=== PATIENT | female | born 1970 | race African-American/Black ===

== ENCOUNTER 2021-03-16 04:50 | Inpatient (IN) | payer MEDICAID, OTHER ==
[~2021-03-16] VITALS: Ht 170.2 cm; Wt 116.3 kg
[2021-03-16] MEDS ORDERED: ONDANSETRON HCL 4MG/2ML INJ IV STA (05:16)
[2021-03-16] MEDS ORDERED: SODIUM CHLORIDE 0.9% 1,000 ML IV ONE (05:30)
[2021-03-16] MEDS ORDERED: MECLIZINE 25MG TABLET PO ONE (06:30)
[2021-03-16] MEDS ORDERED: ASPIRIN 325MG EC TABLET PO ONE (06:30)
[2021-03-16] MEDS ORDERED: CLOPIDOGREL 75MG TABLET PO ONE (06:30)
[2021-03-16] MEDS ORDERED: ONDANSETRON HCL 4MG/2ML INJ IV ONE (06:30)
[2021-03-16 06:48] LABS: CHLORIDE 103 mEq/L (98-107)
[2021-03-16 06:53] LABS: ETHANOL BLOOD < 10 mg/dL
[2021-03-16 07:02] LABS: BASOPHILS % 0.2 % (0.0-2.0); EOSINOPHILS % 0.8 % (0.0-5.0); HEMATOCRIT. 39.4 % (36.0-48.0); HEMOGLOBIN. 12.4 g/dL (12.0-16.0); LYMPHOCYTES % 38.5 % (20.0-50.0); MEAN CORPUSCULAR HEMOGLOBIN 24.3 pg (28.0-32.0); MEAN CORPUSCULAR VOLUME 77.4 fL (81.0-99.0); MEAN PLATELET VOLUME 7.6 fl (7.4-10.4); MONOCYTES % 6.8 % (2.0-8.0); NEUTROPHILS % 53.7 % (40.0-76.0); PLATELET 322 x1000/uL (130-400); RED BLOOD CELL COUNT 5.09 mill/uL (4.2-5.4); RED CELL DISTRIBUTION WIDTH 15.7 % (11.6-14.6)
[2021-03-16 07:10] LABS: CLARITY URINE CLEAR (CLEAR); COLOR URINE YELLOW (YELLOW); KETONES URINE NEGATIVE (NEGATIVE); LEUKOCYTE ESTERASE URINE NEGATIVE (NEGATIVE); NITRITE URINE NEGATIVE (NEGATIVE); OCCULT BLOOD URINE NEGATIVE (NEGATIVE); PROTEIN URINE NEGATIVE (NEGATIVE); SPECIFIC GRAVITY URINE 1.052 (1.005-1.030); UROBILINOGEN URINE 0.2 E.U./dL (0.2-1.0)
[2021-03-16] MEDS ORDERED: IOHEXOL-350 100 ML BOTTLE ONE (07:16)
[2021-03-16 07:31] LABS: *BENZODIAZEPINES SCREEN URINE NEGATIVE (NEGATIVE); *COCAINE SCREEN URINE NEGATIVE (NEGATIVE)
[2021-03-16 07:33] LABS: *AMPHETAMINES SCREEN URINE NEGATIVE (NEGATIVE); *BARBITURATES SCREEN URINE NEGATIVE (NEGATIVE); METHADONE URINE SCREEN NEGATIVE (NEGATIVE); OPIATES URINE SCREEN NEGATIVE (NEGATIVE)
[2021-03-16 07:34] LABS: CANNABINOID URINE SCREEN PRESUMTIVE POSITIVE (NEGATIVE); PHENCYCLIDINE URINE SCREEN NEGATIVE (NEGATIVE)
[2021-03-16] MEDS ORDERED: ONDANSETRON HCL 4MG/2ML INJ IV PRN (14:30)
[2021-03-16] MEDS ORDERED: HYDROCODONE/ACETAMINOPHEN 5/325MG TABLET PO PRN (14:30)
[2021-03-16] MEDS ORDERED: ACETAMINOPHEN 325MG TABLET PO PRN (14:30)
[2021-03-16] MEDS ORDERED: DOCUSATE SODIUM 100MG CAPSULE PO PRN (14:30)
[2021-03-16] MEDS ORDERED: MAGNESIUM/ALUMINUM HYDROXIDE/SIMETHICONE 30ML UDC PO PRN (14:30)
[2021-03-16] MEDS ORDERED: CLONIDINE 0.1MG TABLET PO PRN (14:30)
[2021-03-16] MEDS ORDERED: GUAIFENESIN 200MG/10ML SUGAR FREE UDC PO PRN (14:30)
[2021-03-16 16:30] VITALS: BP 134/83
[2021-03-16] MEDS: ENOXAPARIN 30MG/0.3ML SYR SUBCUT SCH (17:00)
[2021-03-16] MEDS ORDERED: METF-414 PO (17:18)
[2021-03-16] MEDS ORDERED: LISI-186 MT (17:18)
[2021-03-16] MEDS ORDERED: CRES10 PO (17:19)
[2021-03-16 17:50] VITALS: BP 134/83
[2021-03-16] MEDS ORDERED: MECLIZINE 25MG TABLET PO PRN (19:45)
[2021-03-16 20:00] VITALS: BP 147/78
[2021-03-16] MEDS ORDERED: ATORVASTATIN CALCIUM 20MG TABLET PO SCH (21:00)
[2021-03-16] MEDS ORDERED: DEXTROSE 50% WATER 50ML SYRINGE IV PRN ×2 (23:00)
[2021-03-16 23:18] LABS: CREATINE KINASE 129 IU/L (26-192)
[2021-03-17] VITALS: BP 143/88
[2021-03-17 04:00] VITALS: BP 116/79
[2021-03-17] MEDS ORDERED: BLOOD SUGAR DIAGNOSTIC STRIP TEST SCH (07:10)
[2021-03-17 07:30] LABS: BASOPHILS % 0.5 % (0.0-2.0); HEMOGLOBIN. 12.3 g/dL (12.0-16.0); LYMPHOCYTES % 32.7 % (20.0-50.0); MEAN CORPUSCULAR HEMOGLOBIN 24.9 pg (28.0-32.0); MEAN CORPUSCULAR VOLUME 77.2 fL (81.0-99.0); MEAN PLATELET VOLUME 7.4 fl (7.4-10.4); MONOCYTES % 8.2 % (2.0-8.0); NEUTROPHILS % 57.6 % (40.0-76.0); PLATELET 294 x1000/uL (130-400); RED BLOOD CELL COUNT 4.93 mill/uL (4.2-5.4); RED CELL DISTRIBUTION WIDTH 15.6 % (11.6-14.6)
[2021-03-17 07:37] LABS: CHLORIDE 107 mEq/L (98-107)
[2021-03-17] MEDS ORDERED: INSULIN LISPRO 100 UNITS/ML SUBCUT SCH (07:40)
[2021-03-17 07:48] LABS: CREATINE KINASE 123 IU/L (26-192); HDL CHOLESTEROL 43 mg/dL (40-59)
[2021-03-17 07:49] LABS: LDL CHOLESTEROL 53 mg/dL (5-100)
[2021-03-17 08:00] VITALS: BP 130/88
[2021-03-17] MEDS ORDERED: ASPIRIN 81MG EC TABLET PO SCH (09:00)
[2021-03-17] MEDS ORDERED: LISINOPRIL 5MG TABLET PO SCH (09:00)
[2021-03-17] MEDS: ENOXAPARIN 30MG/0.3ML SYR SUBCUT SCH (09:00)
[2021-03-17] MEDS ORDERED: METFORMIN HCL 500MG TABLET PO SCH (09:00)
[2021-03-17] MEDS ORDERED: NALOXONE HCL 0.4MG/ML VIAL IV PRN (11:15)
[2021-03-17] MEDS ORDERED: *PATIENT'S OWN MEDICATION STORAGE XX SCH (11:15)
[2021-03-17] MEDS ORDERED: NON FORMULARY PATIENT HOME MED XX SCH (21:00)
== END 2021-03-17 11:50 | disposition home or self-care (01) | DRG 149 ==
LOC: ER 04:50 → 8WST 12:04 → EDBEDREQ 12:06 → EDBEDREQTM 12:06 → EDBEDREQSVC 12:06 → ENRESERV 14:32
PROVIDERS: ADMIT Hospitalist; ATTEND Hospitalist
DX: R42 Dizziness and giddiness (principal); E11.9 Type 2 diabetes mellitus without complications; E78.5 Hyperlipidemia, unspecified; I10 Essential (primary) hypertension; Z86.73 Personal history of transient ischemic attack (TIA), and cerebral infarction without residual deficits
CPT/HCPCS: 36415; 70496; 70498; 71045; 80053; 80061; 80305; 80320; 81003; 82550; 82962; 83036; 83880; 84484; 85025; 93005; 93970; 99291; J1650; J2405; J7030; J8597; Q9967; G0480